=== PATIENT | male | born 1945 | race Caucasian/White ===

== ENCOUNTER → 2019-01-08 | Outpatient (CLI) | payer MEDICARE, OTHER, SELFPAY ==
--- NOTE | 2019-01-08 14:44 | MRI_ITS ---
STUDY: MRI BRAIN WITHOUT CONTRAST (ATTENTION INTERNAL AUDITORY CANALS - I.A.C.'s) REASON FOR EXAM: Male, 73 years old. Left hearing loss for many years TECHNIQUE: Standardized multiplanar fat and water weighted pulse sequences were obtained. COMPARISON: None. FINDINGS: Normal bilateral internal auditory canals. There is no demonstrated intracanalicular or cisternal vestibular schwannoma (acoustic neuroma) on this unenhanced examination. Normal visualized bilateral cochlea, vestibules and semicircular canals. Normal bilateral mastoid air cells. Normal midbrain, jamil and medulla. Normal cerebellum. Normal basal cisterns. Normal size of the ventricles and extra-axial spaces for the patient's age. Normal white matter tracts of the supratentorial brain. Normal bilateral basal ganglia. Normal thalami. There is no extra-axial fluid accumulation. Normal flow voids within the major intracranial circulation suggesting patency by spin echo criteria. Normal sella turcica, pituitary gland, infundibular stalk, optic chiasm and hypothalamus. Normal tectal plate and pineal gland. No demonstrated orbital abnormality, within the constraints of a routine brain study. Normal visualized paranasal sinuses. Normal calvarium and skull base. Normal visualized soft tissue structures. MRI/Brain without Contrast IMPRESSION: Normal unenhanced MRI of the bilateral internal auditory canals (I.A.C's). Normal unenhanced MRI of the brain. Electronically Signed: Rakesh Gallagher MD at 16:17 EDT Tel , Service support ,
[2019-01-08 15:20] LABS: CREATININE FINGERSTICK 1.4 mg/dL (0.70-1.30)
== END | disposition home or self-care (01) ==
LOC: MRI 14:42
PROVIDERS: Family Provider Family Medicine; PCP Family Medicine; Referring Provider Otolaryngology; Visit Provider Otolaryngology
DX: H91.92 Unspecified hearing loss, left ear (principal)
CPT/HCPCS: 70551

== ENCOUNTER 2022-09-18 12:47 | Observation (INO) | payer MEDICARE, OTHER, SELFPAY ==
[2022-09-18] VITALS (12 sets, daily range): BP systolic 103–138; BP diastolic 65–86; PULSE 49–72; RESP 12–19; TEMP 35.9–37.2; O2SAT 96–100; BMI 27.8
[2022-09-18] MEDS: Lactated Ringers 1,000 ML 15 ML IV ×2 (12:32→15:55)
--- NOTE | 2022-09-18 12:36 | PCM.HP.STD ---
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 Patient understands that organ to do a transurethral resection of prostate and I cannot do the bladder diverticulum removal. We have agreed that if the bladder diverticulum removal is necessary allowed to go to a tertiary care center given his poor lung function but organ to proceed with a TURP here at [facility] under a spinal. [facility] Medical History Anemia Anxiety Arthritis Back pain Bladder disease Cancer Decreased white blood cell count DVT (deep venous thrombosis) Easy bruising Gastric reflux History of echocardiogram History of hiatal hernia History of IBS History of open arm wound History of rheumatic fever History of steroid therapy Indwelling urethral catheter present Injury of head and neck Interstitial lung disease Loss of hearing Non-Hodgkin lymphoma Non-smoker On home oxygen therapy On rituximab therapy Prostate disease Pulmonary fibrosis Shortness of breath on exertion Wears glasses Wears hearing aid Home Medications benzonatate 100 mg capsule 100 mg PO BID PRN Cough 09/04/22 [History Last Taken 09/17/22] cholecalciferol (vitamin D3) 50 mcg (2,000 unit) capsule (Vitamin D3) 50 mcg PO DAILY 09/04/22 [History Last Taken 09/17/22] docusate sodium 100 mg capsule (Stool Softener) 100 mg PO PRN PRN Constipation 09/04/22 [History Last Taken 09/17/22] dutasteride 0.5 mg capsule 0.5 mg PO DAILY 09/04/22 [History Last Taken 09/17/22] famotidine 20 mg tablet 20 mg PO QHS 09/04/22 [History Last Taken 09/17/22] fluticasone propionate 50 mcg/actuation nasal spray,suspension (Flonase Allergy Relief) 1 spray intranasal PRN PRN Nasal Congestion 09/04/22 [History Last Taken 09/17/22] nintedanib 150 mg capsule (Ofev) 150 mg PO Q12H 09/04/22 [History Last Taken 09/17/22] omeprazole 40 mg capsule,delayed release 40 mg PO DAILY 09/04/22 [History Last Taken 09/18/22] prednisone 5 mg tablet 5 mg PO DAILY 09/04/22 [History Last Taken 09/17/22] tamsulosin 0.4 mg capsule 0.4 mg PO QHS 09/04/22 [History Last Taken 09/17/22] trazodone 50 mg tablet 100 mg PO QHS 09/04/22 [History Last Taken 09/17/22] triamcinolone acetonide 0.1 % topical cream 1 applic topical PRN PRN Skin Cleansing 09/04/22 [History Last Taken 09/17/22] vitamin B12 500 mcg-folic acid 400 mcg tablet 1 tab PO DAILY 09/04/22 [History Last Taken 09/17/22] Allergy/AdvReac Type Severity Reaction Status Date / Time acetaminophen [From [place]] Allergy Hives Verified 09/18/22 12:31 cephalexin [From Keflex] Allergy Hives Verified 09/18/22 12:31 chlorhexidine Allergy Hives Verified 09/18/22 12:31 finasteride Allergy Hives Verified 09/18/22 12:31 hydrocodone [From [place]] Allergy Hives Verified 09/18/22 12:31 iodine Allergy Hives Verified 09/18/22 12:31 latex Allergy Rash,ITCHIN Verified 09/18/22 12:31 G lorazepam Allergy Itching Verified 09/18/22 12:31 povidone-iodine Allergy Hives Verified 09/18/22 12:31 [From Betadine] hydromorphone [From Dilaudid] AdvReac Nausea/Vom/ Verified 09/18/22 12:31 Diarrhea ketorolac [From Toradol] AdvReac Nausea/Vom/ Verified 09/18/22 12:31 Diarrhea meperidine [From Demerol] AdvReac Nausea/Vom/ Verified 09/18/22 12:31 Diarrhea oxycodone [From Percocet] AdvReac Nausea/Vom/ Verified 09/18/22 12:31 Diarrhea Surgical History History of lung biopsy History of nephrectomy, right History of shoulder replacement History of shoulder surgery History of surgery on arm Hx laparoscopic cholecystectomy Hx of appendectomy Hx of colonoscopy Hx of decompressive lumbar laminectomy Hx of excision of mass Social History Smoking Status: Never smoker Assessment & Plan Assessment/Plan (1) Urinary retention due to benign prostatic hyperplasia: PLAN: Plan to proceed with a transurethral resection of the prostate under spinal
--- NOTE | 2022-09-18 12:37 | DCINST_ITS ---
Discharge Instructions Diet Discharge Diet: No restrictions, Light diet - advance as tolerated and Soft diet Activity Discharge Activity: Return to Normal Activity Dressing / Incision Call your doctor if you observe: Fever of 101 or Higher Follow Up Care Please Follow Up With: Marv Cox MD When: follow up in two weeks. Test Results: Test results from this visit will be discussed in further detail at your follow- up appointment, if applicable. Discharge Plan Admission Attending Provider: Marv Cox Primary Care Provider: Ryan Newton Discharge Orders/Prescriptions Prescriptions: No Action trazodone 50 mg Tablet 100 mg PO QHS prednisone 5 mg Tablet 5 mg PO DAILY omeprazole 40 mg Capsule,Delayed Release(Dr/Ec) 40 mg PO DAILY triamcinolone acetonide 0.1 % Cream 1 applic TOPICAL PRN PRN (Reason: Skin Cleansing) famotidine 20 mg Tablet 20 mg PO QHS tamsulosin 0.4 mg Capsule 0.4 mg PO QHS benzonatate 100 mg Capsule 100 mg PO BID PRN (Reason: Cough) docusate sodium [Stool Softener] 100 mg Capsule 100 mg PO PRN PRN (Reason: Constipation) fluticasone propionate [Flonase Allergy Relief] 50 mcg/actuation [place],Suspension 1 spray INTRANASAL PRN PRN (Reason: Nasal Congestion) Rx Instructions: administer into each nostril dutasteride 0.5 mg Capsule 0.5 mg PO DAILY cholecalciferol (vitamin D3) [Vitamin D3] 50 mcg (2,000 unit) Capsule 50 mcg PO DAILY vitamin X68-npcht acid 500-400 mcg Tablet 1 tab PO DAILY Rx Instructions: administer with a meal Ofev 150 mg Capsule 150 mg PO Q12H Referrals / Follow Up: Ryan Newton DO [Primary Care Provider] - Disposition Disposition (needs filled in before D/C Order can be placed): Home, Self Care
[2022-09-18 12:45] LABS: AST(SGOT) 26 U/L (15-37); Alanine Aminotransfer ALT/SGPT 37 U/L (16-61); Albumin, Serum 3.9 g/dL (3.2-5.0); Alkaline Phosphatase 47 U/L (45-117); Bilirubin, Direct 0.23 mg/dL (0.00-0.30); Globulin 3.7 g/dL (2.2-4.2); Protein, Total 7.6 g/dL (6.4-8.2)
[2022-09-18 12:55] LABS: International Normalized Ratio 1.1; Prothrombin Time (Protime)PT. 13.4 SECONDS (11.7-14.9)
[2022-09-18] MEDS: Cefazolin 2 GM in 0.9% Normal Saline 100 ML IV (13:12)
[2022-09-18] MEDS: Lubricating Jelly 60 GM Tube 30 GM (13:46)
--- NOTE | 2022-09-18 13:55 | PROS_PTH ---
PATIENT: LLOYD GRACE LOC: [facility] U#:[id number] AGE/SX: 77/M RO[place]: [facility] RE09/18/[address]: Dr. Marv Cox MD : 1945 BED: 1 DIS: 09/19/2022 SPEC #: [id number] RECD: 09/18/22 17:05 STATUS: JESSIE BUTLER #: [id number] HARMEET: 09/18/22 13:[address]: Marv Cox DEPT: SURGICAL PATHOLOGY RECD BY: Pamela Wood ENTERED: 09/19/22 15:19 SP TYPE: TURP OTHR DR: Dr. Ryan Newton, DO Tissues: Prostate, NOS Procedures: Surgery Specimen Level IV HEADER OPERATION: Cysto, TUR prostate, Olympus PRE-OP DIAGNOSIS: Urinary retention due to benign prostatic hyperplasia TISSUE SUBMITTED: Prostate chips MICROSCOPIC DIAGNOSIS Prostate chips, transurethral resection: Benign prostatic hyperplasia, glandular and stromal type. Focal chronic inflammation and basal cell hyperplasia. KEITH:ruba 09/20/2022 MICROSCOPIC DESCRIPTION Slides are reviewed. GROSS DESCRIPTION Received is one container labeled with the patient's name and designated prostate chips. The specimen consists of multiple irregular fragments of pink-alvarez, rubbery, soft tissue that in aggregate weigh 14 gm and measure in aggregate 6.0 x 6.0 x 2.5 cm. Stud [employer] tissue is submitted in ten cassettes. / KEITH:ruba 09/19/2022 TC:5 CPT: 52824
--- NOTE | 2022-09-18 14:42 | PCM.OPRPT ---
Report of Operation Date of Procedure: 09/18/22 Pre-Operative Diagnosis: BPH with obstruction and atonic stretched out bladder, bladder diverticulum large Post-Operative Diagnosis: Transurethral section of the prostate Surgery/Procedure Performed:: Transurethral section prostate Description of Surgical Findings:: Patient is taken back to the operating room at a smooth induction of general anesthesia he was placed in dorsolithotomy position. I went into the bladder with a 24 noncontinuous flow Olympus bipolar resectoscope on inspection he had a very large stretched out bladder 2 large diverticulum was within the bladder but because he could not have general anesthesia given his lung condition reducing to proceed with a TURP patient understands is possible he may not be able to urinate and this may fail and he may need to learn self intermittent catheterization he does have a very large stretched out bladder its possible that even with the complete resection of the prostate he may not be able to urinate and he may have to learn how to self cath Patient was taken back to the operating room at the smooth induction of general anesthesia he was placed in dorsolithotomy position and went of the bladder with a 24 Lithuanian noncontinuous flow bipolar resectoscope I resected the left right lobe of the prostate I resect the left lobe of the prostate very carefully resected the apical tissue took about an hour to resect the prostate open did a flow test he had a nice wide open flow sphincter was intact there was no flapping tissue made sure that there was good hemostasis all the chips were Ellik out of the bladder and then I placed a 22 Lithuanian catheter into the bladder with a catheter guide. Patient anesthetic was reversed he underwent a spinal anesthesia we did a complete resection of the prostate had a wide open channel only the sphincter was left intact at open channel from the verumontanum into the bladder neck he did still have a very large stretched out bladder and 2 large bladder diverticulum as he understands that it may not be possible he may not be able to urinate after the surgery hopefully can but he may have to learn self intermittent catheterization. Surgery was completed obtain hemostasis catheter was put in in the urine is fairly clear patient's anesthetic is being reversed and is taken back to PACU in good condition. Surgeon: Marv Cox Type of Anesthesia: Spinal Drains: 22fr [address] way
[2022-09-18] MEDS: BENZOCAINE/MENTHOL 1 LOZENGE 2 LOZENGE MUCOUS MEM (18:37)
[2022-09-18] MEDS: Lactated Ringers 1,000 ML 125 ML IV ×2 (18:37→21:44)
[2022-09-18] MEDS: traZODone 100 MG Tablet PO (21:43)
[2022-09-18] MEDS: Docusate Sodium 100 MG Capsule 200 MG PO (21:43)
[2022-09-18] MEDS: Tamsulosin HCl 0.4 MG Capsule PO (21:43)
[2022-09-18] MEDS: Famotidine 20 MG Tablet PO (21:43)
[2022-09-19] MEDS: Lactated Ringers 1,000 ML 125 ML IV (04:15)
[2022-09-19] MEDS: BENZOCAINE/MENTHOL 1 LOZENGE 2 LOZENGE MUCOUS MEM (04:26)
[2022-09-19 04:29] VITALS: BP 136/76; PULSE 66; RESP 18; TEMP 36.6; O2SAT 96
--- NOTE | 2022-09-19 07:25 | PCM.PN.GU ---
Subjective Subjective Status post transurethral resection of the prostate had a really good resection wide open channel had a nice flow test during surgery but he does have a very stretched out bladder and large diverticulum's which I could not remove because of his conditions. I hopefully the patient will be able to urinate today but he understands there is no guarantees of success. We will remove the catheter today and if he is able to urinate and go home today without a catheter if after 8 hours or if he gets distended and still can go ahead to go home with a catheter this was explained to the patient. Objective Data Objective Data Vital Signs: Vital Signs Temp Pulse Resp BP Pulse Ox O2 Del Method 97.9 F 66 18 136/76 H 96 Room Air 09/19/22 04:29 09/19/22 04:29 09/19/22 04:29 09/19/22 04:29 09/19/22 04:29 09/19/22 04:29 Oxygen Delivery Method Room Air Weight: 83 kg Body Mass Index (BMI) 27.8 Intake & Output: Intake and Output for Last 24 Hours 09/17/22 09/18/22 09/19/22 23:59 23:59 23:59 Intake Total 1785.83 / 1785.83 814.58 / 814.58 Output Total 6250 / 6250 Balance -4464.17 / -4464.17 814.58 / 814.58 Lab / Micro Data Labs: Laboratory Results - last 24 hr 09/18/22 12:25: PT 13.4, INR 1.1, APTT 27.0 09/18/22 12:25: Total Bilirubin 0.80, Direct Bilirubin 0.23, AST 26, ALT 37, Alkaline Phosphatase 47, Total Protein 7.6, Albumin 3.9, Globulin 3.7
[2022-09-19 08:19] VITALS: BP 135/87; PULSE 62; RESP 18; TEMP 37.1; O2SAT 95
[2022-09-19] MEDS: DUTASTERIDE 0.5 MG CAPSULE PO (10:04)
[2022-09-19] MEDS: Pantoprazole Sodium 40 MG Tablet PO (10:04)
[2022-09-19] MEDS: predniSONE 5 MG Tablet PO (10:04)
[2022-09-19 13:12] VITALS: BP 152/88; PULSE 80; RESP 18; TEMP 36.3; O2SAT 94
== END 2022-09-19 13:18 | disposition home or self-care (01) ==
LOC: SDC 15:22 → MS3 15:23
PROVIDERS: Anesthesiology; Admitting Provider Urology; PCP Family Medicine; Referring Provider Urology; Visit Provider Urology
PROC: (CPT 52601; principal; 2022-09-18 13:45)
DX: N40.1 Benign prostatic hyperplasia with lower urinary tract symptoms (principal); R33.8 Other retention of urine; N32.3 Diverticulum of bladder; Z86.718 Personal history of other venous thrombosis and embolism; K21.9 Gastro-esophageal reflux disease without esophagitis; Z79.899 Other long term (current) drug therapy; Z85.528 Personal history of other malignant neoplasm of kidney; Z86.2 Personal history of diseases of the blood and blood-forming organs and certain disorders involving the immune mechanism; Z87.19 Personal history of other diseases of the digestive system
CPT/HCPCS: 52601; 00914; 80076; 85610; 85730; 88305; 94668; 96360; 96361; 96366; 99221; 99252; J7120; G0378; G0463

== ENCOUNTER → 2023-06-25 | Outpatient (CLI) | payer MEDICARE, OTHER, SELFPAY ==
--- NOTE | 2023-06-25 09:06 | CT_ITS ---
STUDY: CT ABDOMEN AND PELVIS WITH CONTRAST REASON FOR EXAM: Male, 78 years old. ABD PAIN. Prior right nephrectomy. RADIATION DOSAGE (If Supplied By Facility): CTDIvol = ( 14.98 ) mGy, DLP = ( 1683.23 ) mGycm TECHNIQUE: Transaxial images were obtained from the dome of the diaphragm to the symphysis pubis with oral contrast. Oral and amp; IV Readi-CAT and amp; 75mL Isovue-300 was administered. Sagittal and coronal images were reconstructed. Individualized dose optimization techniques were used for this CT. COMPARISON: None. FINDINGS: Increased linear markings with areas of confluence are seen in the right middle lobe and lingular segment of the left upper lobe. Increase markings are also seen in the lower lobe suggestive of scarring. Coronary artery calcification. Normal liver. The patient is status post cholecystectomy. Normal spleen. Normal pancreas. Normal bilateral adrenal glands. Status post right nephrectomy. Normal left kidney. Normal visualized stomach. Normal small intestine. There are multiple colonic diverticula consistent with diverticulosis. The appendix is visualized and appears normal. There is scattered atherosclerotic calcification of the abdominal aorta, without a demonstrated aneurysm. Normal inferior vena cava. Normal retroperitoneum. Mild degree of diffuse bladder wall thickening. Small bilateral bladder diverticula are seen along the bladder base more prominent on the left side. This measures 2.8 cm x 2.5 cm. There is a 2.4 cm x 2 cm cystic change in the prostate most likely secondary to prior TURP. Normal abdominal wall. The mineralization of the lumbar vertebrae with loss of height of the superior endplate of the L5 vertebra. CT/Abdomen/Pelvis W IV Cont ONLY IMPRESSION: Status post right nephrectomy. Findings in keeping with a TURP. Electronically Signed: Jay Pulido MD at 14:06 EST ,
[2023-06-25 09:39] LABS: EGFR FINGERSTICK > 60.0000 mL/min (>60)
== END | disposition home or self-care (01) ==
LOC: CT 09:05
PROVIDERS: PCP Family Medicine; Referring Provider Urology; Visit Provider Urology
DX: R10.84 Generalized abdominal pain (principal)
CPT/HCPCS: 74177; Q9967

== ENCOUNTER → 2023-07-03 | Outpatient (CLI) | payer MEDICARE, OTHER, SELFPAY ==
[2023-07-03 10:41] LABS: PSA,Total - Annual Screen 0.66 ng/mL (0.00-4.00)
== END | disposition home or self-care (01) ==
LOC: LAB 09:40
PROVIDERS: PCP Family Medicine; Referring Provider Urology; Visit Provider Urology
DX: Z12.5 Encounter for screening for malignant neoplasm of prostate (principal)
CPT/HCPCS: 36415; 84153; G0103

== ENCOUNTER → 2024-02-23 | Outpatient (CLI) | payer MEDICARE, OTHER, SELFPAY ==
--- NOTE | 2024-02-23 15:30 | RAD_ITS ---
INDICATION: COMPRESSION FRACTURE EXAMINATION/TECHNIQUE: X-RAY - XR Spine Thoracic 2 Views COMPARISON: Prior study dated: 06/25/2023 FINDINGS: VERTEBRAE: Height loss of a midthoracic vertebral body. This is likely T8. There is approximately 50% loss of anterior vertebral body height. No spondylolisthesis. Preservation of the normal thoracic kyphosis. No significant facet arthropathy. DISCS: Disc spaces are maintained. INCLUDED CHEST/ABDOMEN: Central vascular prominence in the lungs. Hazy opacity at the periphery of the right midlung. RAD/Thoracic Spine 2 Views IMPRESSION: Height loss of a midthoracic vertebral body, likely T8. Electronically Signed: Hira Rodríguez MD at 22:18 EDT ,
--- NOTE | 2024-02-23 15:30 | RAD_ITS ---
INDICATION: COMPRESSION FRACTURE EXAMINATION/TECHNIQUE: X-RAY - XR Spine Lumbar 2 or 3 Views COMPARISON: Prior study dated: 06/25/2023 FINDINGS: VERTEBRAE: Mild chronic height loss of the L5 vertebral body. Remaining vertebral body heights are maintained. No fracture. No spondylolisthesis. Preservation of the normal lumbar lordosis. Mild facet arthropathy. DISCS: Disc spaces are maintained. INCLUDED ABDOMEN: Included bowel gas pattern is non-obstructive. RAD/Lumbar Spine 2 or 3 Views IMPRESSION: No evidence of lumbar spinal fracture or spondylolisthesis. Mild degenerative changes. Electronically Signed: Hira Rodríguez MD at 22:18 EDT ,
== END | disposition home or self-care (01) ==
LOC: RAD 15:05
PROVIDERS: PCP Family Medicine; Referring Provider Anesthesiology; Visit Provider Anesthesiology
DX: M48.56XA Collapsed vertebra, not elsewhere classified, lumbar region, initial encounter for fracture (principal); M48.54XA Collapsed vertebra, not elsewhere classified, thoracic region, initial encounter for fracture
CPT/HCPCS: 72070; 72100

== ENCOUNTER → 2024-06-22 | Outpatient (CLI) | payer MEDICARE, OTHER, SELFPAY ==
--- NOTE | 2024-06-22 14:29 | RAD_ITS ---
EXAM: XR THORACIC SPINE, 2 VIEWS CLINICAL INDICATION: COMPRESSION FX TECHNIQUE: Frontal and lateral views of the thoracic spine. COMPARISON: 02/23/2024 FINDINGS: VERTEBRAE: T8 compression fracture is now status post vertebral augmentation without significant change of vertebral body heights and prior examination. Multilevel endplate osteophytosis and facet arthrosis. Subtle apex left thoracic curvature. No spondylolisthesis. OTHER BONES/JOINTS: Unilateral shoulder arthroplasty is identified. DISC SPACES: No significant abnormality. Disc spaces are maintained. LUNGS AND PLEURAL SPACES: Likely bibasilar scarring and/or fibrotic changes in the bilateral lungs. VASCULATURE: Vascular calcifications. RAD/Thoracic Spine 2 Views IMPRESSION: 1. T8 compression fracture is now status post vertebral augmentation without significant change of vertebral body heights and prior examination. 2. Likely bibasilar scarring and/or fibrotic changes in the bilateral lungs. 3. Multilevel degenerative changes in the spine without evidence of additional compression fracture. Electronically Signed: Cristobal Lugo DO at 20:40 EST ,
== END | disposition home or self-care (01) ==
LOC: RAD 14:28
PROVIDERS: PCP Family Medicine; Referring Provider Anesthesiology Pain Medicine; Visit Provider Anesthesiology Pain Medicine
DX: S22.069A Unspecified fracture of T7-T8 vertebra, initial encounter for closed fracture (principal)
CPT/HCPCS: 72070